=== PATIENT | female | born 1935 | race Caucasian/White ===

== ENCOUNTER 2016-06-17 06:46 | Day surgery (SDC) | payer OTHER, MEDICARE ==
[~2016-06-17] VITALS: Ht 160 cm; Wt 84.8 kg
[~2016-06-17 06:46] MED LIST: APRESOLINE50 MG PO; APRISO0.375 GM PO; ASCORBIC ACID500 M3 PO; AUGMENTIN875 MG PO; BENTYL10 MG PO; BREO ELLIPTA I1 EACH IH; Bentyl PO; CENTRUM SILVER1 EAC3 PO; CLARITIN10 M3 PO; COMPAZINE10 MG PO; COMPAZINE5 MG PO; COREG25 M1 PO; Centrum Silver,Certa PO; Claritin,Alavart PO; Colace PO; Coreg PO; DAILY VALUE1 EACH PO; DAILY VITAMIN1 EAC8 PO; FLAGYL500 MG PO; FLOVENT 11120 INHALA IH; Flovent Diskus 50 mc IH; HYTRIN1 MG PO; LORCET 5-325 M1 EACH PO; Levothroid,Synthroid PO; MAXZIDE 37.5 M1 EACH PO; MEVACOR10 MG PO; MIRALAX255 GM PO; NABUMETONE500 MG PO; NORCO 5/3251 TABLET PO; PLAVIX75 MG PO; PREDNISONE5 MG PO; PROAIR HFA8.5 GM IH; PROTONIX40 MG PO; Proventil,Ventolin H IH; RELAFEN500 M1 PO; Relafen PO; SPIRIVA1 INHALATI IH; SULFAZINE500 M1 PO; SYMBICORT60 INHALAT IH; SYNTHROID50 MCG PO; TOFRANIL25 MG PO; TYLENOL EXTRA500 MG PO; Tofranil PO; ULTRAM50 MG PO; VALIUM5 MG PO; VASOTEC20 MG PO; VENTOLIN HFA18 GM IH; VICODIN 5-3001 EACH PO; VITAMIN D1000 UNIT PO; VITAMIN D2000 UNIT PO; ZENPEP DR 15,01 EACH PO; ZOFRAN4 MG PO
[2016-06-17 07:27] VITALS: BP 121/58
[2016-06-17] MEDS ORDERED: TRAMADOL HCL50 MG PO (10:20)
[2016-06-17 12:03] VITALS: BP 186/80
== END 2016-06-17 12:10 | disposition home or self-care (01) ==
LOC: SDC 06:46
PROC: 0KBR0ZZ Excision of Left Upper Leg Muscle, Open Approach (ICD-10-PCS; principal; 2016-06-17)
DX: D17.79 Benign lipomatous neoplasm of other sites (principal); J44.9 Chronic obstructive pulmonary disease, unspecified; I10 Essential (primary) hypertension; I25.10 Atherosclerotic heart disease of native coronary artery without angina pectoris; E78.5 Hyperlipidemia, unspecified; K21.9 Gastro-esophageal reflux disease without esophagitis; E55.9 Vitamin D deficiency, unspecified; G62.9 Polyneuropathy, unspecified; E03.9 Hypothyroidism, unspecified; Z99.81 Dependence on supplemental oxygen; Z87.891 Personal history of nicotine dependence; Z88.6 Allergy status to analgesic agent; Z88.8 Allergy status to other drugs, medicaments and biological substances
CPT/HCPCS: 88304; J0690; J2250; J3010

== ENCOUNTER → 2016-07-25 | Outpatient (CLI) | payer OTHER, MEDICARE ==
[~2016-07-25] MED LIST changes: +TRAMADOL HCL50 MG PO
== END | disposition home or self-care (01) ==
LOC: NUC 06-30 09:00
DX: E34.9 Endocrine disorder, unspecified (principal); E83.52 Hypercalcemia
CPT/HCPCS: 78072; A9500

== ENCOUNTER → 2017-07-10 | Outpatient (CLI) | payer OTHER, MEDICARE | END | disposition home or self-care (01) | LOC: NUC 07:02 | DX: E05.20 Thyrotoxicosis with toxic multinodular goiter without thyrotoxic crisis or storm (principal) | CPT/HCPCS: 78014; 78999; A9516 ==